=== PATIENT | male | born 1985 | race Caucasian/White ===

== ENCOUNTER 2020-07-29 20:38 | Emergency (ER) | payer BC ==
[~2020-07-29] VITALS: Ht 188 cm; Wt 74.8 kg
[2020-07-29] MEDS ORDERED: CYCLOBENZAPRINE 10 MG TABLET PO ONE (21:30)
[2020-07-29] MEDS ORDERED: IBUPROFEN 400 MG TABLET PO ONE (21:30)
[2020-07-29] MEDS ORDERED: TDAP [DIPH/PERTUSSIS/TET] 0.5 ML VIAL IM ONE ×2 (21:30→21:40)
[2020-07-29] MEDS ORDERED: IBUPROFEN 400 MG TABLET ONE (21:40)
[2020-07-29] MEDS ORDERED: CYCLOBENZAPRINE 10 MG TABLET ONE (21:40)
[2020-07-29] MEDS ORDERED: METH-807 PO (22:24)
[2020-07-29] MEDS ORDERED: IBUP-1957 PO (22:24)
--- NOTE | 2020-07-29 22:50 | NUR ---
Patient discharged to home in stable condition. Written and verbal after care instructions given. Patient verbalizes understanding of instruction. Pt ambulatory with a steady gait
[2020-07-29 22:52] VITALS: BP 115/70
== END 2020-07-29 22:53 | disposition home or self-care (01) ==
LOC: ER 20:38
DX: S16.1XXA Strain of muscle, fascia and tendon at neck level, initial encounter (principal); S60.512A Abrasion of left hand, initial encounter; S60.812A Abrasion of left wrist, initial encounter; S50.812A Abrasion of left forearm, initial encounter; V49.49XA Driver injured in collision with other motor vehicles in traffic accident, initial encounter; Y93.89 Activity, other specified; Y92.413 State road as the place of occurrence of the external cause; Y99.8 Other external cause status
CPT/HCPCS: 72050; 73090; 73110; 73130; 90471; 90715; 99284; A6403